=== PATIENT | female | born 1985 | race Hispanic/Latino ===

== ENCOUNTER 2017-02-21 18:45 | Emergency (ER) | payer OTHER ==
[~2017-02-21] VITALS: Ht 170.2 cm; Wt 176.4 kg
[2017-02-21] MEDS ORDERED: OMEPRAZOLE20 MG PO (19:35)
[2017-02-21] MEDS ORDERED: PROZAC20 MG PO (19:35)
[2017-02-21] MEDS ORDERED: NAPROSYN500 MG PO (22:00)
[2017-02-21] MEDS ORDERED: FLAGYL500 MG PO (22:07)
== END 2017-02-21 22:26 | disposition home or self-care (01) ==
LOC: ED 18:45
DX: R10.2 Pelvic and perineal pain (principal); N89.8 Other specified noninflammatory disorders of vagina; R30.0 Dysuria; R10.30 Lower abdominal pain, unspecified; Z90.49 Acquired absence of other specified parts of digestive tract; Z87.891 Personal history of nicotine dependence
CPT/HCPCS: 81001; 84703; 87070; 87205; 87491; 87591; 99284